=== PATIENT | male | born 1960 | race Caucasian/White ===

== ENCOUNTER 2022-07-26 08:00 | Outpatient (RCR) | payer OTHER, SELFPAY ==
[2022-07-12 13:04] VITALS: BMI 29.9
[2022-07-12 13:37] VITALS: BMI 29.9
== END 2022-09-26 23:59 | disposition home or self-care (01) ==
LOC: ANHDMC 08:00
DX: E11.65 Type 2 diabetes mellitus with hyperglycemia (principal); Z71.89 Other specified counseling; Z71.3 Dietary counseling and surveillance
CPT/HCPCS: 97802; G0108